=== PATIENT | male | born 1995 | race American Indian/Alaskan Native ===

== ENCOUNTER 2017-06-26 02:56 | Emergency (ER) | payer SELFPAY ==
[2017-06-26] MEDS ORDERED: NACL 0.9% 500 ML IR ONE (03:34)
[2017-06-26] MEDS ORDERED: MORPHINE ONE (03:36)
[2017-06-26] MEDS ORDERED: ZOFRAN ONE (03:36)
[2017-06-26] MEDS ORDERED: NACL 0.9% IR ONE ×2 (03:37→04:04)
[2017-06-26] MEDS ORDERED: MORPHINE IV ONE (03:37)
[2017-06-26] MEDS ORDERED: ZOFRAN IV ONE (03:37)
[2017-06-26] MEDS ORDERED: XYLOCAINE 2%/EPI 1:100,000 INFILTRATI ONE ×2 (03:52→04:04)
--- NOTE | 2017-06-26 04:29 | XRay Report ---
FINAL REPORT EXAM: XR HUMERUS 2+V RT HISTORY: mirror fell on pt. r/o foreign body TECHNIQUE: AP and lateral portable views of the right humerus PRIORS: None. FINDINGS: There is no evidence for acute fracture or dislocation. There it is soft tissue disruption involving the lateral anterior aspect of the midshaft upper arm. No radiopaque foreign bodies are seen. Bony mineralization is normal and joint spaces are maintained. IMPRESSION: No acute bony abnormality noted. Soft tissue injury in the midshaft of the upper arm.
[2017-06-26] MEDS ORDERED: BOOSTRIX IM ONE (05:43)
[2017-06-26] MEDS ORDERED: TRIPLE ANTIBIOTIC TP ONE (05:43)
--- NOTE | 2017-06-26 05:52 | Emergency Department Report ---
- General Chief Complaint: Laceration/Recheck/Suture Stated Complaint: ARM LACERATION Source: patient Mode of arrival: Ambulatory Limitations: No Limitations - History of Present Illness -: Sudden, This morning Extremity Location: Right: Arm, Elbow 1 - Laceration 1 2 - Laceration 2 3 - Laceration 3 4 - Laceration 4 5 - Laceration 5 Place: home Patient Tetanus UTD: Yes Context: accidental, other (trip and fall with broken, tall glass mirror falling on arm) - Related Data Previous Rx's Medication Instructions Recorded Last Taken Type Sulfamethoxazole/Trimethoprim 1 each PO BID #20 tablet 06/26/17 Unknown Rx [Bactrim DS TAB] traMADol [Ultram 50 MG tab] 50 mg PO Q4HR PRN #20 tablet 06/26/17 Unknown Rx Allergies Allergy/AdvReac Type Severity Reaction Status Date / Time Penicillins Allergy Swelling Verified 06/26/17 03:18 ED Review of Systems ROS: Stated complaint: ARM LACERATION Other details as noted in HPI Constitutional: denies: chills, fever Eyes: denies: eye pain, eye discharge, vision change Respiratory: denies: cough, shortness of breath, wheezing Cardiovascular: denies: chest pain, palpitations, syncope Gastrointestinal: nausea, vomiting Musculoskeletal: joint swelling Skin: other (lacerations to right upper arm and elbow) Neurological: denies: headache, weakness, numbness, paresthesias ED Past Medical Hx - Past Medical History Previous Medical History?: Yes Hx Asthma: Yes - Surgical History Past Surgical History?: No - Social History Smoking Status: Former Smoker Substance Use Type: None - Medications Home Medications: Home Medications Medication Instructions Recorded Confirmed Last Taken Type Sulfamethoxazole/Trimethoprim 1 each PO BID #20 tablet 06/26/17 Unknown Rx [Bactrim DS TAB] traMADol [Ultram 50 MG tab] 50 mg PO Q4HR PRN #20 tablet 06/26/17 Unknown Rx ED Physical Exam - General Limitations: No Limitations General appearance: alert, in no apparent distress - Head Head exam: Present: atraumatic, normocephalic - Eye Eye exam: Present: normal appearance, PERRL, EOMI Pupils: Present: normal accommodation, irregular - Neck Neck exam: Present: normal inspection, full ROM. Absent: tenderness - Respiratory Respiratory exam: Present: normal lung sounds bilaterally. Absent: respiratory distress - Cardiovascular Cardiovascular Exam: Present: regular rate - Expanded Upper Extremity Exam Right Elbow exam: Present: laceration (multiple lacerations of elbow and medial head of tricep full dermal thickness with partial muscular involvement, no tenderness involvement, no arterial bleeding, neurovascular and motor are intact distal to injury.) Forearm Wrist exam: Present: normal inspection Hand Wrist exam: Present: normal inspection Neuro motor exam: Present: wrist extension intact, thumb opposition intact Neurosensory exam: Present: 2-point discrimination, radial nerve intact, ulnar nerve intact Vascular: Present: normal capillary refill. Absent: vascular compromise, pulse deficit radial art, pulse deficit ulnar art, pulse deficit brachial art, radial pulse, brachial pulse, ulnar pulse - Back Exam Back exam: Present: normal inspection - Neurological Exam Neurological exam: Present: alert, oriented X3, CN II-XII intact ED Course Vital Signs 06/26/17 03:18 Temperature 97.9 F Pulse Rate 87 Respiratory 18 Rate Blood Pressure 124/85 O2 Sat by Pulse 97 Oximetry - Laceration /Wound Repair Right Medial Arm Wound Location: upper extremity Wound Length (cm): 45 Wound's Depth, Shape: into muscle, irregular, stellate Wound Explored: no foreign body removed Irrigated w/ Saline (ccs): 100 Betadine Prep?: Yes Anesthesia: Lidocaine w/ Epi Volume Anesthetic (ccs): 40 Wound Repaired With: sutures Suture Size/Type: 3:0, nylon Number of Sutures: 43 Layer Closure?: Yes Deep Layer Suture Size/Type: 3:0, dexon (Vicryl) Number Deep Layer Sutures: 34 Sterile Dressing Applied?: Yes Progress: Patient tolerated procedure well cleaned with Betadine and sterile saline after closure, wound dressed in sterile manner using Betadine nonadherent dressing and Luly and posterior short arm elbow splint placed after closure. Patient still had good neurovascular and motor affected hand with good 2 point discrimination and brisk cap refill. Patient tolerated procedure well. Procedure lasted approximately 0.5 hours - Orthopedic Splinting/Casting Injury #1 Side: right Upper Extremity Injury Location: elbow Upper Extremity Immobilizer: posterior splint Additional Comments: Vision tolerated procedure well neurovascular motor intact afterwards. ED Medical Decision Making - Medical Decision Making Patient's wound is fairly extensive and will need close follow-up I discussed this in detail with patient he knows to return in 24 hours for recheck patient also understands the importance of keeping this splint in place keeping arm immobile for the first several days until wound seals taking antibiotics as prescribed cleaning and dressing wound daily and being checked daily for the first several days also understands the dangers of swelling and to come in if it appears that wound is swelling to much to have a suture to removed for fluid release. Wound also assessed with . Critical care attestation.: If time is entered above; I have spent that time in minutes in the direct care of this critically ill patient, excluding procedure time. ED Disposition Clinical Impression: Laceration of right upper extremity Disposition: - TO HOME OR SELFCARE Is pt being admited?: No Condition: Stable Instructions: Suture Care (ED), Laceration (ED), Absorbable Suture Care (ED), Acute Wound Care (ED) Additional Instructions: You must clean wound and change dressing daily. He must take antibiotics as prescribed. He must return here for recheck in 24 hours. He must keep wound a mobile for the next several days and have regular wound rechecks. You must read all discharge instructions and keep them with you while you're recovering from this injury. Prescriptions: Sulfamethoxazole/Trimethoprim [Bactrim DS TAB] 1 each PO BID #20 tablet traMADol [Ultram 50 MG tab] 50 mg PO Q4HR PRN #20 tablet PRN Reason: Pain Referrals: PRIMARY MD ROSA [Primary Care Provider] - 3-5 Days ZEV GONGORA MD [Staff Physician] - 3-5 Days
[2017-06-26] MEDS ORDERED: CLEOCIN IM ONE (06:23)
[2017-06-26 06:58] VITALS: BP 130/85
== END 2017-06-26 07:07 | disposition home or self-care (01) ==
LOC: ED 02:56
DX: S51.011A Laceration without foreign body of right elbow, initial encounter (principal); J45.909 Unspecified asthma, uncomplicated; W45.8XXA Other foreign body or object entering through skin, initial encounter; Y93.9 Activity, unspecified; Y92.9 Unspecified place or not applicable; Y99.9 Unspecified external cause status
CPT/HCPCS: 12047; 73060; 90471; 90715; 96372; 96374; 96375; 99283; J2270; J2405; A6250